=== PATIENT | female | born 1935 | race Two or more races ===

== ENCOUNTER 2021-11-10 07:16 | Outpatient (CLI) | payer OTHER | END 2021-11-10 07:17 | disposition home or self-care (01) | LOC: NUCLEAR 07:16 | PROVIDERS: ATTEND Internal Medicine Cardiovascular Disease | DX: I50.9 Heart failure, unspecified (principal); I25.10 Atherosclerotic heart disease of native coronary artery without angina pectoris; R55 Syncope and collapse | CPT/HCPCS: 78452; 93017; A9500; J1250 ==